=== PATIENT | male | born 1970 | race African-American/Black ===

== ENCOUNTER → 2016-11-22 | Outpatient (CLI) | payer BC ==
--- NOTE | ~2016-11-22 | CR229 ---
[facility] A Service of [facility] RADIOLOGY TEXT RESULTS PATIENT: NIKHIL HOLGUIN LOCATION: [facility] : [birth year] UNIT #: [id number] AGE: [address]: TERESA COTA MD SEX: M ORDER DR: [id number] [facility] [address] [place], [place] [address] [id number] O MR#: [id number] Acc #: [id number] NAME: NIKHIL HOLGUIN : 1970 SEX: M STUDY DATE/TIME: 11/22/2016 8:28 UNIT: [facility] ROOM: STUDY DESCRIPTION: CR Shoulder Min 2 View Lt Attending Physician: Teresa Cota M.D. Referring Physician: Teresa Cota M.D. Ordering Physician: Teresa Cota M.D. Primary Care Physician: Teresa Cota M.D. MEDICAL IMAGING REPORT This report is preliminary unless electronic signature is present EXAM Left shoulder 3 views 11/22/2016 HISTORY Left shoulder pain with left hand tingling for 2 months. No known injury. FINDINGS AP view with internal and external rotation of the shoulder girdle shows satisfactory relationship of the humeral head and glenoid fossa. The joint space is normal. There is no identifiable fracture or dislocation or bony destructive process about the shoulder girdle anatomy. The acromioclavicular joint is normal. There is no radiopaque foreign body in the region. IMPRESSION Normal shoulder. Dictated by... Chan Torres M.D. THIS IS AN ELECTRONICALLY VERIFIED REPORT Chan Torres M.D. at 11/23/2016 9:33 AM BETSEY/pablo TD: 11/22/2016 10:14 JOB #: [id number] MEDICAL IMAGING REPORT Page 1 of 1 COPY
== END | disposition home or self-care (01) ==
LOC: CRAD 08:12
DX: M25.512 Pain in left shoulder (principal); M79.2 Neuralgia and neuritis, unspecified
CPT/HCPCS: 73030

== ENCOUNTER → 2017-01-23 | Outpatient (CLI) | payer BC ==
--- NOTE | ~2017-01-23 | US115 ---
[facility] A Service of [facility] RADIOLOGY TEXT RESULTS PATIENT: NIKHIL HOLGUIN LOCATION: [facility] : [birth year] UNIT #: [id number] AGE: [address]: HAMIDA CONTRERAS APRN SEX: M ORDER DR: [id number] [facility] [address] [place], [place] [address] [id number] O MR#: [id number] #: [id number] NAME: NIKHIL HOLGUIN. : 1970 SEX: M STUDY DATE/TIME: 01/23/2017 14:15 UNIT: [facility] ROOM: STUDY DESCRIPTION: US Scrotum and Contents Attending Physician: Hamida Contreras Np Referring Physician: Hamida Contreras Np Ordering Physician: Hamida Contreras Np Primary Care Physician: Mauricio Cota M.D. MEDICAL IMAGING REPORT This report is preliminary unless electronic signature is present EXAM Testicular ultrasound with color flow Doppler 01/23/2017 HISTORY Bilateral testicular pain for 2 weeks with no known injury. TECHNIQUE [place]roy-scale images of the scrotum were obtained as well as Doppler waveform, spectral analysis, and color flow Doppler imaging. FINDINGS The right testicle measured 2.9 cm X 2.3 cm x 3.7 cm, while the left testicle measured 3.7 cm X 2.4 cm x 2 cm. Both testes are homogeneous in echotexture and demonstrate no cystic or solid mass lesions. Color-flow Doppler images show normal blood flow to both testes. There is a 2-mm cyst or spermatocele involving the head of the right epididymis. The left epididymis is normal. Trace scrotal fluid is seen. Small left varicocele is noted. IMPRESSION 1. The testes are normal bilaterally. No testicular mass is seen. Color-flow Doppler images show normal blood flow to both testes. 2. Small right epididymal cyst or spermatocele. 3. Trace scrotal fluid. 4. Small left varicocele. Dictated by... Chan Torres M.D. THIS IS AN ELECTRONICALLY VERIFIED REPORT Chan Torres M.D. at 01/24/2017 8:01 AM KRT/js STS. [facility] A Service of [facility] RADIOLOGY TEXT RESULTS PATIENT: NIKHIL HOLGUIN LOCATION: [facility] #: [id number] : [birth year] UNIT #: [id number] AGE: [address]: HAMIDA CONTRERAS APRN SEX: M ORDER DR: TD: 01/23/2017 18:44 JOB #: [id number] MEDICAL IMAGING REPORT Page 1 of 1 COPY
== END | disposition home or self-care (01) ==
LOC: CGUS 13:42
DX: N50.812 Left testicular pain (principal); N50.811 Right testicular pain; I86.1 Scrotal varices
CPT/HCPCS: 76870; 93976